=== PATIENT | female | born 1945 | race Two or more races ===

== ENCOUNTER 2023-06-02 19:17 | Emergency (ER) | payer OTHER ==
[~2023-06-02] VITALS: Ht 160 cm; Wt 51.7 kg
[2023-06-02] MEDS ORDERED: ATORVASTATIN CA10 MG PO (19:38)
[2023-06-02] MEDS ORDERED: MAXIMUM D3325 MCG PO (19:38)
[2023-06-02] MEDS ORDERED: ANASTROZOLE1 MG PO (19:38)
== END 2023-06-02 22:05 | disposition home or self-care (01) ==
LOC: ER 19:17
DX: M54.12 Radiculopathy, cervical region (principal); M50.322 Other cervical disc degeneration at C5-C6 level
CPT/HCPCS: 72040; 73030; 96372; 99284; J1885; J2920